=== PATIENT | female | born 2000 | race Caucasian/White ===

== ENCOUNTER 2021-06-27 18:31 | Emergency (ER) | payer MEDICAID ==
[~2021-06-27] VITALS: Ht 165.1 cm; Wt 42.4 kg
[2021-06-27 18:35] VITALS: BP 108/73
[2021-06-27] MEDS ORDERED: NEOM10SO12 LEFT EAR (20:29)
[2021-06-27] MEDS ORDERED: CARBAMIDE PEROXIDE 6.5% OTIC SOLN 15ML EACH EAR SCH (20:30)
[2021-06-28] MEDS ORDERED: NEOMYCIN-POLYMYXIN B-HYDROCORTISONE 1% OTIC SOLN 10ML LEFT EAR SCH
== END 2021-06-27 22:14 | disposition home or self-care (01) ==
LOC: ER 18:31
DX: H61.23 Impacted cerumen, bilateral (principal); Z98.890 Other specified postprocedural states
CPT/HCPCS: 99283

== ENCOUNTER 2022-06-19 15:31 | Emergency (ER) | payer MEDICAID ==
[~2022-06-19] VITALS: Ht 160 cm; Wt 60.0 kg
[~2022-06-19 15:31] MED LIST: NEOM10SO12 LEFT EAR
[2022-06-19] MEDS ORDERED: AMOX-494 MT (18:48)
[2022-06-19] MEDS ORDERED: NEOM10DR11 EACH EAR (18:48)
[2022-06-19 19:18] VITALS: BP 109/58
== END 2022-06-19 19:19 | disposition home or self-care (01) ==
LOC: ER 15:31
DX: H66.93 Otitis media, unspecified, bilateral (principal)
CPT/HCPCS: 99283